=== PATIENT | male | born 1995 | race African-American/Black ===

== ENCOUNTER 2020-07-17 08:00 | Outpatient (CLI) | payer OTHER | END 2020-07-17 23:59 | disposition home or self-care (01) | LOC: LAB.R 08:00 | PROVIDERS: ATTEND Family Medicine | DX: J45.901 Unspecified asthma with (acute) exacerbation (principal); Z20.822 Contact with and (suspected) exposure to COVID-19 ==

== ENCOUNTER 2020-10-27 08:00 | Outpatient (CLI) | payer OTHER ==
[2020-10-27 23:36] LABS: NEISSERIA GONORRHOEAE DNA NEGATIVE (NEGATIVE)
[2020-10-27 23:39] LABS: CHLAMYDIA TRACHOMATIS DNA POSITIVE (NEGATIVE)
[2020-10-29 10:42] LABS: HEPATITIS C ANTIBODY NON-REACTIVE (NON-REACTIVE)
[2020-10-29 13:31] LABS: HIV AG/AB 4TH GEN NON-REACTIVE (NON-REACTIVE)
[2020-11-02 11:37] LABS: HSV 1 IGG TYPE SPECIFIC AB 1.86 index; HSV 2 IGG TYPE SPECIFIC AB <0.90 index
== END 2020-10-27 23:59 | disposition home or self-care (01) ==
LOC: LAB.N 08:00
PROVIDERS: ATTEND Nurse Practitioner
DX: Z20.2 Contact with and (suspected) exposure to infections with a predominantly sexual mode of transmission (principal)
CPT/HCPCS: 81599; 86695; 86696; 86803; 87389; 87491; 87591; 87661